=== PATIENT | male | born 1955 | race Caucasian/White ===

== ENCOUNTER 2018-07-07 20:43 | Emergency (ER) | payer BC ==
[2018-07-07] MEDS ORDERED: Bupivacaine 0.5% 10 ML SDV INJECT ONE (21:24)
[2018-07-07] MEDS ORDERED: Lidocaine 1% 10 ML MDV INJECT ONE (21:24)
--- NOTE | 2018-07-07 21:27 | EDM.PDOC ---
ED HPI GENERAL MEDICAL PROBLEM - General Chief Complaint: Laceration Stated Complaint: LIP INJURY/KICKED BY A COW Time Seen by Provider: 07/07/18 21:07 Source of Information: Reports: Patient, RN Notes Reviewed History Limitations: Reports: No Limitations - History of Present Illness INITIAL COMMENTS - FREE TEXT/NARRATIVE: The patient states that a calf struck a metal gate, that then struck the patient on his mouth, around 20:30 this evening. He presents with a laceration to his lower right lip, and states that his left upper incisor feels a little loose. He clarifies that the tooth is a, and he suspects that the glue might have come loose. He denies dental pain. The patient is otherwise uninjured. The patient estimates that his last tetanus vaccination was more than 10 years ago. The patient does not have a PCP. - Related Data Allergies Allergy/AdvReac Type Severity Reaction Status Date / Time No Known Allergies Allergy Verified 07/07/18 21:00 Home Meds: Home Meds . [No Known Home Meds] 07/07/18 [History] Past Medical History Musculoskeletal History: Reports: Fracture (Left forearm, x 2. Right foot.) - Past Surgical History HEENT Surgical History: Reports: Oral Surgery (wisdom teeth extraction), Tonsillectomy Social & Family History - Tobacco Use Smoking Status *Q: Never Smoker - Alcohol Use Alcohol Use History: Yes Alcohol Use Frequency: Rarely - Recreational Drug Use Recreational Drug Use: No - Living Situation & Occupation Living situation: Reports: Single, Alone Occupation: Employed ([employer]) ED ROS GENERAL - Review of Systems Review Of Systems: ROS reveals no pertinent complaints other than HPI. ED EXAM, GENERAL - Physical Exam Exam: See Below Exam Limited By: No Limitations General Appearance: Alert, WD/WN, No Apparent Distress Eye Exam: Bilateral Eye: EOMI, Normal Inspection Ears: Normal External Exam, Hearing Grossly Normal Nose: Normal Inspection, No Blood Throat/Mouth: Normal Gums, Normal Oropharynx, Normal Voice, No Airway Compromise , Other (The lower right lip has a krqiwjn-ees-wimrcth laceration, with both lacerations being irregular, measuring approximately 1.5 cm each. There is local lip swelling.) Head: Atraumatic, Normocephalic ED GENERAL MEDICAL PROCEDURES - Laceration/Wound Repair Lower Mouth Lac/wound length in cm: 3.0 Appearance: Subcutaneous, Irregular Distal NVT: Neuro & Vascular Intact, No Tendon Injury Anesthetic Type: Local Local Anesthesia - Lidocaine (Xylocaine): 1% Plain (50:50 admixture) Local Anesthesia - Bupivicaine (Marcaine): 0.5% Plain (50:50 admixture) Local Anesthetic Volume: 4cc Skin Prep: Providone-Iodine (Betadine) Exploration/Debridement/Repair: Wound Explored, In a Bloodless Field, Explored to Base, No Foreign Material Found, Wound Margins Revised Closed with: Sutures Suture Size: 3-0 # of Sutures: 6 Suture Type: Nylon (Ethilon), Interrupted, Simple Drain Placement: No Sterile Dressing Applied: None Tetanus Status Addressed: Yes Complications: No Course - Vital Signs Last Recorded V/S: Last Vital Signs Temp 36.7 C 07/07/18 21:00 Pulse 64 07/07/18 21:00 Resp 18 07/07/18 21:00 BP 134/85 07/07/18 21:00 Pulse Ox 97 07/07/18 21:00 - Orders/Labs/Meds Orders: Active Orders 24 hr Category Date Time Status Vaccines to be Administered [RC] PER UNIT ROUTINE Care 07/07/18 23:32 Active Meds: Medications Discontinued Medications Generic Name Dose Route Start Last Admin Trade Name Rick PRN Reason Stop Dose Admin Bupivacaine HCl 10 ml 07/07/18 21:24 07/07/18 21:31 Sensorcaine-Mpf 0.5% INJECT 07/07/18 21:25 10 ml ONETIME ONE Administration Diphtheria/Tetanus/Acell Pertussis 0.5 ml 07/07/18 23:32 07/07/18 23:47 Adacel IM 07/07/18 23:33 0.5 ml .ONCE ONE Administration Lidocaine HCl 10 ml 07/07/18 21:24 07/07/18 21:31 Xylocaine 1% INJECT 07/07/18 21:25 10 ml ONETIME ONE Administration - Re-Assessments/Exams Free Text/Narrative Re-Assessment/Exam: 07/07/18 21:27 The patient appears to have suffered a zzwixzy-fra-qrswdzg laceration to his right lower lip. The wounds will need to be sutured. The patient will be given a tetanus vaccination. 07/07/18 23:22 Each of the patient's laceration is received 3 simple interrupted sutures. The patient tolerated the procedure well. Departure - Departure Time of Disposition: 23:22 Disposition: Home, Self-Care 01 Condition: Good Clinical Impression: Laceration of lower lip - Discharge Information *PRESCRIPTION DRUG MONITORING PROGRAM REVIEWED*: Not Applicable *COPY OF PRESCRIPTION DRUG MONITORING REPORT IN PATIENT MARIE: Not Applicable Instructions: Laceration Care, Adult Referrals: PCP,None [Primary Care Provider] - Forms: ED Department Discharge Additional Instructions: You were seen in the emergency room after a metal gate struck your lower lip, cutting it. On examination, you had a cossbyp-oco-afnzbcc laceration to your lower lip. You received a total of 6 sutures to close the 2 lacerations. You received a tetanus vaccination in the ER. Keep the wounds clean as best as possible, with ordinary soap and water when you bathe. Take ihxj-uib-zhtmmgh Tylenol or ibuprofen as needed for discomfort. An ice pack applied to your lip for the next couple of days may help minimize swelling. The sutures should be ready for removal by 07/15/2018. This can be done at the walk-in clinic, by a nurse at your doctor's office, or in the ER. If you develop an inordinate amount of pain to the lip, or there is significant swelling, or drainage, or if you develop a fever, please return to the ER for reevaluation. - My Orders Last 24 Hours: My Active Orders 07/07/18 23:32 Vaccines to be Administered [RC] PER UNIT ROUTINE - Assessment/Plan Last 24 Hours: My Active Orders 07/07/18 23:32 Vaccines to be Administered [RC] PER UNIT ROUTINE
[2018-07-07] MEDS ORDERED: Diphtheria,Pertussis(Acell),Tetanus Vaccine 0.5 ML Syringe IM ONE (23:32)
== END 2018-07-07 23:39 | disposition home or self-care (01) ==
LOC: JD.ED 20:43
DX: S01.511A Laceration without foreign body of lip, initial encounter (principal); Z23 Encounter for immunization; W22.8XXA Striking against or struck by other objects, initial encounter
CPT/HCPCS: 12013; 90471; 90700; 99282; J2001; J3490; 99283

== ENCOUNTER 2024-07-27 08:27 | Day surgery (SDC) | payer MEDICARE, BC ==
[2024-07-27] MEDS: Lidocaine 1% PF 2 ML SDV INJECT SCH (08:15)
[2024-07-27] MEDS: Phenylephrine 2.5% Ophth Soln 2 ML Bot EYELF SCH (08:15)
[2024-07-27] MEDS: Tetracaine HCl/PF 0.5% 4 ML Bottle EYEBOTH SCH (08:15)
[2024-07-27] MEDS: Polymyxin B/Trimethoprim 10 ML Bottle EYELF SCH (08:16)
[2024-07-27] MEDS: Brimonidine 0.2% Ophth Soln 5 ML Bottle EYELF SCH (08:16)
[2024-07-27] MEDS: Pilocarpine 4% Ophth Soln 15 ML Bot EYELF SCH (08:16)
[2024-07-27] MEDS: Cefuroxime 10 MG/ML SYRINGE EYELF SCH (08:16)
[2024-07-27] MEDS: Tropicamide 1% Ophth Soln 3 ML Bottle EYELF SCH (09:04)
== END 2024-07-27 10:56 | disposition home or self-care (01) ==
LOC: JD.SDS 08:27 → MERGE 10:30 → JD.SDS 10:55
PROVIDERS: ATTEND Ophthalmology
DX: H25.813 Combined forms of age-related cataract, bilateral (principal); H17.813 Minor opacity of cornea, bilateral; H35.3131 Nonexudative age-related macular degeneration, bilateral, early dry stage; H35.363 Drusen (degenerative) of macula, bilateral; H16.103 Unspecified superficial keratitis, bilateral; H16.223 Keratoconjunctivitis sicca, not specified as Sjogren's, bilateral
CPT/HCPCS: 66984; A9270; J0697; J3490

== ENCOUNTER 2024-08-31 07:52 | Day surgery (SDC) | payer MEDICARE, BC ==
[2024-08-31] MEDS: Polymyxin B/Trimethoprim 10 ML Bottle EYERT SCH (08:36)
[2024-08-31] MEDS: Brimonidine 0.2% Ophth Soln 5 ML Bottle EYERT SCH (08:40)
[2024-08-31] MEDS: Phenylephrine 2.5% Ophth Soln 2 ML Bot EYERT SCH (08:43)
[2024-08-31] MEDS: Lidocaine 1% PF 2 ML SDV INJECT SCH (08:46)
[2024-08-31] MEDS: Tropicamide 1% Ophth Soln 3 ML Bottle EYERT SCH (08:46)
[2024-08-31] MEDS: Tetracaine HCl/PF 0.5% 4 ML Bottle EYEBOTH SCH (08:47)
[2024-08-31] MEDS: Pilocarpine 4% Ophth Soln 15 ML Bot EYERT SCH (08:47)
[2024-08-31] MEDS: Cefuroxime 10 MG/ML SYRINGE EYERT SCH (08:47)
== END 2024-08-31 10:28 ==
LOC: JD.SDS 07:52
PROVIDERS: ATTEND Ophthalmology
DX: H26.9 Unspecified cataract (principal)
CPT/HCPCS: 66984; A9270; J0697; J3490; V2632